=== PATIENT | female | born 1950 | race Caucasian/White ===

== ENCOUNTER 2025-03-22 08:33 | Day surgery (SDC) | payer MEDICARE, OTHER ==
[2025-03-22] MEDS ORDERED: fentaNYL 100 MCG/2 ML SDV ONE (08:34)
[2025-03-22] MEDS ORDERED: Propofol 200 MG/20 ML SDV ONE ×2 (08:34→10:34)
[2025-03-22] MEDS: Lactated Ringers 1,000 ML IV SCH (09:16)
== END 2025-03-22 11:47 | disposition home or self-care (01) ==
LOC: VM.SDS 08:33
PROVIDERS: ATTEND Family Medicine
DX: Z12.11 Encounter for screening for malignant neoplasm of colon (principal); K63.5 Polyp of colon; I10 Essential (primary) hypertension; I48.0 Paroxysmal atrial fibrillation; E66.813 Obesity, class 3; F17.210 Nicotine dependence, cigarettes, uncomplicated; Z88.8 Allergy status to other drugs, medicaments and biological substances; Z79.01 Long term (current) use of anticoagulants; Z79.899 Other long term (current) drug therapy
CPT/HCPCS: 00811; 88305; 99100; J2704; J3010; J7120